=== PATIENT | female | born 1995 | race American Indian/Alaskan Native ===

== ENCOUNTER 2018-04-29 15:05 | Emergency (ER) | payer MEDICAID ==
[2018-04-29 15:29] VITALS: BP 127/85
[2018-04-29 16:32] LABS: Bilirubin,Urine NEG (Negative); Blood,Urine NEG (Negative); Color,Urine Yellow (Yellow); HCG Qualitative,Urine Negative (Negative); Mucus,Urine FEW /HPF; Protein,Urine <15 mg/dL mg/dL (Negative)
--- NOTE | 2018-04-29 16:34 | Emergency Department Report ---
ED Female HPI - General Chief complaint: Urogenital-Female Stated complaint: ABD CRAMPING Time Seen by Provider: 04/29/18 16:11 Source: patient Mode of arrival: Ambulatory Limitations: No Limitations - History of Present Illness Initial comments: Patient is 22 years old female with no significant past medical history. Patient presented to the ER complaining of pelvic pain and whitish creamy discharge associated with itching for the last 2 weeks. Patient denied any fever or nausea or vomiting. She stated that her last menstrual period was 2 weeks ago. MD Complaint: vaginal discharge, pelvic pain -: week(s) - Related Data Allergies Allergy/AdvReac Type Severity Reaction Status Date / Time No Known Allergies Allergy Unverified 04/29/18 15:29 ED Review of Systems ROS: Stated complaint: ABD CRAMPING Other details as noted in HPI Comment: All other systems reviewed and negative Respiratory: denies: cough, shortness of breath Cardiovascular: denies: chest pain, palpitations Gastrointestinal: abdominal pain Genitourinary: discharge. denies: urgency, dysuria ED Past Medical Hx - Past Medical History Previous Medical History?: No - Surgical History Past Surgical History?: No - Social History Smoking Status: Never Smoker Substance Use Type: None ED Physical Exam - General Limitations: No Limitations General appearance: alert, in no apparent distress - Head Head exam: Present: atraumatic - Eye Eye exam: Present: normal appearance - ENT ENT exam: Present: normal exam, normal orophraynx, mucous membranes moist - Neck Neck exam: Present: normal inspection, full ROM. Absent: tenderness, meningismus - Respiratory Respiratory exam: Present: normal lung sounds bilaterally - Cardiovascular Cardiovascular Exam: Present: regular rate - GI/Abdominal GI/Abdominal exam: Present: soft. Absent: distended, tenderness, guarding, rebound - Extremities Exam Extremities exam: Present: normal inspection, normal capillary refill. Absent: calf tenderness - Back Exam Back exam: Present: normal inspection, full ROM. Absent: tenderness, CVA tenderness (R), CVA tenderness (L), muscle spasm, paraspinal tenderness, vertebral tenderness - Neurological Exam Neurological exam: Present: alert, oriented X3, CN II-XII intact, normal gait - Skin Skin exam: Present: warm, intact, normal color ED Course Vital Signs 04/29/18 15:26 Temperature 99.2 F Pulse Rate 102 H Respiratory 16 Rate Blood Pressure 127/85 O2 Sat by Pulse 100 Oximetry Critical care attestation.: If time is entered above; I have spent that time in minutes in the direct care of this critically ill patient, excluding procedure time. ED Disposition Clinical Impression: Vaginal candidiasis Disposition: TO HOME OR SELFCARE Is pt being admited?: No Condition: Stable Instructions: Vulvovaginal Candidiasis (ED) Referrals: PRIMARY CARE, [Primary Care Provider] - 3-5 Days
== END 2018-04-29 16:41 | disposition home or self-care (01) ==
LOC: ED 15:05
DX: B37.3 Candidiasis of vulva and vagina (principal)
CPT/HCPCS: 81001; 81025; 99283

== ENCOUNTER 2018-05-23 10:42 | Emergency (ER) | payer MEDICAID ==
[2018-05-23 10:54] VITALS: BP 129/85
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
--- NOTE | 2018-05-23 11:50 | Emergency Department Report ---
ED Female HPI - General Chief complaint: Medical Clearance Stated complaint: VAG DISCHARGE Time Seen by Provider: 05/23/18 11:28 Source: patient, family Mode of arrival: Ambulatory Limitations: No Limitations - History of Present Illness Initial comments: This is 22-year-old female reports that she was here in 04/29/2018 and she was diagnosed a yeast infection and was given Diflucan on but she wasn't having any itching or any yeastlike discharge and she is still having the discharge and she is here to have STD testing. She says she is having some abdominal cramping at times. Denies any vaginal bleeding. She said discharge has slight odor. Patient wants to be treated for STD and tested for STD. Last menstrual period was 04/08/2018. Denies any urinary burning frequency or urgency. Denies any back pain. Cramping and is 2/10 crampy and no medication taken. Intermittent and no alleviating or exacerbating factors. MD Complaint: vaginal discharge, pelvic pain, possible STD Onset/Timin -: days(s) Location: suprapubic Radiation: non-radiating Severity: mild Severity scale (0 -10): 2 Quality: cramping Consistency: intermittent Improves with: none Worsens with: none Are you Now?: No Last Menstrual Period: 04/08/18 EDC: 01/13/19 Associated Symptoms: vaginal discharge, abdominal pain, other (concern for STDs) . denies: vaginal bleeding, nausea/vomiting, fever/chills, headaches, loss of appetite, dysuria, hematuria, rash, seizure, shortness of breath, syncope, weakness - Related Data Sexually active: Yes Home Medications Medication Instructions Recorded Confirmed Last Taken No Known Home Medications [No 05/23/18 05/23/18 Unknown Reported Home Medications] Allergies Allergy/AdvReac Type Severity Reaction Status Date / Time No Known Allergies Allergy Verified 05/23/18 10:52 ED Review of Systems ROS: Stated complaint: VAG DISCHARGE Other details as noted in HPI Constitutional: denies: chills, fever Eyes: denies: eye pain, eye discharge, vision change ENT: denies: throat pain Respiratory: denies: cough, shortness of breath, SOB with exertion, SOB at rest , stridor, wheezing Cardiovascular: denies: chest pain, palpitations, edema, syncope Gastrointestinal: abdominal pain (pelvic cramping). denies: nausea, vomiting, diarrhea Genitourinary: discharge. denies: urgency, dysuria, frequency, hematuria, abnormal menses, dyspareunia Musculoskeletal: denies: back pain, joint swelling, arthralgia Skin: denies: rash, lesions Neurological: denies: headache ED Past Medical Hx - Past Medical History Previous Medical History?: No - Surgical History Past Surgical History?: No - Family History Family history: hypertension - Social History Smoking Status: Never Smoker Substance Use Type: None - Medications Home Medications: Home Medications Medication Instructions Recorded Confirmed Last Taken Type No Known Home Medications [No 05/23/18 05/23/18 Unknown History Reported Home Medications] ED Physical Exam - General Limitations: No Limitations General appearance: alert, in no apparent distress - Head Head exam: Present: atraumatic, normocephalic, normal inspection - Eye Eye exam: Present: normal appearance, PERRL, EOMI Pupils: Present: normal accommodation - ENT ENT exam: Present: normal exam, normal orophraynx, mucous membranes moist - Neck Neck exam: Present: normal inspection, full ROM. Absent: tenderness, lymphadenopathy - Respiratory Respiratory exam: Present: normal lung sounds bilaterally. Absent: respiratory distress, chest wall tenderness - Cardiovascular Cardiovascular Exam: Present: regular rate, normal rhythm, normal heart sounds. Absent: systolic murmur, diastolic murmur - GI/Abdominal GI/Abdominal exam: Present: soft, normal bowel sounds. Absent: distended, tenderness, guarding, rebound, rigid - External exam: Present: normal external exam Speculum exam: Present: vaginal discharge, cervical discharge. Absent: erythema , vaginal bleeding, foreign body, tissue, laceration Bi-manual exam: Present: normal bi-manual exam - Extremities Exam Extremities exam: Present: normal inspection, full ROM, normal capillary refill , other (no clubbing, cyanosis or edema. +2 pulses to all extremities and no neurovascular compromise). Absent: tenderness, pedal edema, joint swelling, calf tenderness - Back Exam Back exam: Present: normal inspection, full ROM, muscle spasm, other (ambulates without any difficulties). Absent: tenderness, CVA tenderness (R), CVA tenderness (L), paraspinal tenderness, vertebral tenderness, rash noted - Neurological Exam Neurological exam: Present: alert, oriented X3, normal gait - Psychiatric Psychiatric exam: Present: normal affect, normal mood - Skin Skin exam: Present: warm, dry, intact, normal color. Absent: rash ED Course Vital Signs 05/23/18 10:52 Temperature 98.2 F Pulse Rate 96 H Respiratory 18 Rate Blood Pressure 129/85 O2 Sat by Pulse 100 Oximetry - Reevaluation(s) Reevaluation #1: 05/23/18 13:19 Patient treated with Rocephin 2 mg IM and azithromycin 1 g by mouth for gonorrhea and chlamydia at her request. Gonorrhea and chlamydia tests sent and wet prep is negative. Urinalysis negative findings ED Medical Decision Making - Lab Data Lab Results 05/23/18 05/23/18 Range/Units 11:30 Unknown Urine Color Yellow (Yellow) Urine Turbidity Clear (Clear) Urine pH 7.0 (5.0-7.0) Ur Specific [place] 1.020 (1.003-1.030) Urine Protein <15 mg/dl (Negative) mg/dL Urine Glucose (UA) Neg (Negative) mg/dL Urine Ketones Neg (Negative) mg/dL Urine Blood Neg (Negative) Urine Nitrite Neg (Negative) Urine Bilirubin Neg (Negative) Urine Urobilinogen 2.0 (<2.0) mg/dL Ur Leukocyte Esterase Neg (Negative) Urine WBC (Auto) 3.0 (0.0-6.0) /HPF Urine RBC (Auto) 4.0 (0.0-6.0) /HPF U Epithel Cells (Auto) < 1.0 (0-13.0) /HPF Amorphous Crystals Few Urine Mucus 2+ /HPF Urine HCG, Qual Negative (Negative) Wet prep-negative to cells, negative trichomoniasis and negative yeast CHL sent and pending - EKG Data Interpretation: other - Medical Decision Making 22-year-old female here complaining of vaginal discharge. Minimal odor of 3 weeks. She was here on 04/29/2018 and was treated with Diflucan on for yeast infection and patient says she doesn't think she has used because she is not having any itching. Patient is requesting STD testing and to be treated for STD. She does have on safe sex and expressed concern for STD. He is also having some pelvic cramping but no urinary symptoms. This patient was seen and examined by myself. Pelvic exam done and was normal except she has vaginal and cervical discharge. Urinalysis negative for infection, gonorrhea and chlamydia tests sent and pending, wet prep negative findings. Labs reviewed and expressed was low with patient's and patient's want to be treated for gonorrhea and clear and she will return to the coworker' s department in 5 days to get her result. I discussed with her that she needs to refrain from having sexual activity for 10 days and she needs to get retested at some outside Medical Center or [facility] Department. We discuss diagnosis and treatment plan and she voiced understanding and she is in agreement A/P: 1: Vaginal discharge-patient wants to be treated for STD, gonorrhea and chlamydia pending, wet prep is negative urinalysis is negative 2: Encounter STD treatment in female without diagnosis-patient treated with Rocephin 250 mg IM, azithromycin 1 g by by mouth 1 dose. No adverse reaction. 3: Abdominal cramping-pelvic exam is normal without any PID and she has no tenderness with palpation of her abdomen. test is negative Patient instructed to practice safe sex Instructed to return refrain from having sexual activity until she gets checked in 7-10 days to make sure he is clear of STD Instructed to notify any partners that he might know that he was in contact with that he was treated for STD and emergency room Patient educated on medication, treatment plan and needed follow-up. She voiced understanding. Vital signs are stable he's afebrile. Discharge from ED in stable condition to follow up with her care physician and/or [facility] in 7 -10 days and she voiced understanding - Differential Diagnosis UTI,STD,PID Critical care attestation.: If time is entered above; I have spent that time in minutes in the direct care of this critically ill patient, excluding procedure time. ED Disposition Clinical Impression: Vaginal discharge, Concern about STD in female without diagnosis, Pelvic pain Disposition: DC-01 TO HOME OR SELFCARE Is pt being admited?: No Does the pt Need Aspirin: No Condition: Stable Instructions: Abdominal Pain (ED), Sexually Transmitted Diseases (ED), Safe Sex (ED) Additional Instructions: Please refrain from having sexual activity with her partner until he gets treated and retested for STD. You were treated for gonorrhea, chlamydia in emergency room and will need to get rechecked in 7 days. Appointment with [facility] for primary care visit and also for recheck on STD or you can go to [facility] department gonorrhea and chlamydia test will be available in 5 days Practice safe sex. Referrals: [facility] [Outside] - 7-10 days [facility] Dept. [Outside] - 7-10 days Forms: Accompanied Note, Work/School Release Form(ED)
[2018-05-23 12:20] LABS: Amorphous Crystals,Urine Few; Bilirubin,Urine NEG (Negative); Blood,Urine NEG (Negative); Color,Urine Yellow (Yellow); Mucus,Urine 2+ /HPF; Protein,Urine <15 mg/dL mg/dL (Negative)
[2018-05-23] MEDS ORDERED: ROCEPHIN IM ONE (13:00)
[2018-05-23] MEDS ORDERED: XYLOCAINE 1% MPF 5 mL INFILTRATI ONE (13:00)
[2018-05-23] MEDS ORDERED: ZITHROMAX PO ONE (13:00)
[2018-05-23 13:08] LABS: HCG Qualitative,Urine Negative (Negative)
== END 2018-05-23 13:41 | disposition home or self-care (01) ==
LOC: ED 10:42
DX: N89.8 Other specified noninflammatory disorders of vagina (principal); R10.2 Pelvic and perineal pain
CPT/HCPCS: 81001; 81025; 87210; 87591; 96372; 99284; J0696